=== PATIENT | female | born 1950 | race Caucasian/White ===

== ENCOUNTER 2017-04-08 16:18 | Emergency (ER) | payer OTHER ==
[~2017-04-08] VITALS: Ht 152.4 cm; Wt 52.6 kg
[2017-04-08] MEDS ORDERED: DILTIAZEM HCL 25 MG IV IV ONE (16:30)
[2017-04-08] MEDS ORDERED: IV NORMAL SALINE 1000 ML BAG IV ONE (16:45)
[2017-04-08 16:49] LABS: BASOPHILS % (AUTO) 0.7 % (0.0-2.0); EOSINOPHILS # (AUTO) 0.1 K/uL (0.0-0.7); EOSINOPHILS % (AUTO) 1.2 % (0.0-7.0); HEMATOCRIT 40.7 % (31.2-41.9); HEMOGLOBIN 14.1 g/dL (10.9-14.3); LYMPHOCYTES # (AUTO) 1.8 K/uL (20.0-40.0); LYMPHOCYTES % (AUTO) 32.6 % (20.5-51.5); MEAN CORPUSCULAR HEMOGLOBIN 31.8 uug (24.7-32.8); MEAN CORPUSCULAR HGB CONC 35 g/dL (32.3-35.6); MEAN CORPUSCULAR VOLUME 91.7 fL (75.5-95.3); MONOCYTES # (AUTO) 0.7 K/uL (2.0-10.0); MONOCYTES % (AUTO) 12.4 % (0.0-11.0); NEUTROPHILS # (AUTO) 2.8 K/uL (1.8-8.9); NEUTROPHILS % (AUTO) 53.1 % (38.5-71.5); PLATELET COUNT (AUTO) 236 K/uL (179-408); RED BLOOD CELL COUNT(AUTO) 4.44 MIL/uL (3.63-4.92); WHITE BLOOD COUNT (AUTO) 5.4 K/uL (3.8-11.8)
[2017-04-08] MEDS ORDERED: DILTIAZEM HCL 25 MG IV ONE (16:51)
[2017-04-08 17:19] LABS: BILIRUBIN,DIRECT 0.1 mg/dL (0.0-0.2); BILIRUBIN,TOTAL 0.4 mg/dL (0.2-1.0); CREATININE 0.8 mg/dL (0.6-1.3); POTASSIUM 4.1 mmol/L (3.5-5.1); TOTAL PROTEIN, SERUM 7.5 g/dL (6.4-8.2)
--- NOTE | 2017-04-08 17:47 | NUR ---
Patient discharged to home in stable conditon. Written and verbal after care instructions given. Patient verbalizes understanding of instructions.PT SAYS FEELS BETTER, PT DENIES ANY PALPITATION, CP, SOB OR DIZZINESS OR ANY OTHER DISTRESS. PT WITH DAUGHTER.
[2017-04-08 17:53] VITALS: BP 109/71
== END 2017-04-08 17:54 | disposition home or self-care (01) ==
LOC: ER 16:18
DX: I47.1 Supraventricular tachycardia (principal)
CPT/HCPCS: 36415; 71010; 80048; 80076; 83690; 84484; 85025; 93005; 96361; 96374; 99285; A4663; J3490; J7030; 70030-TC